=== PATIENT | male | born 1995 | race Caucasian/White ===

== ENCOUNTER 2024-04-08 19:38 | Emergency (ER) | payer SELFPAY ==
[2024-04-08] MEDS: Sodium Chloride 0.9% 1,000 ML IRR PRN (20:47)
[2024-04-08] MEDS: Sodium Chloride 0.9% 250 ML ONE (20:47)
[2024-04-08] MEDS: Fluorescein 1 MG Ophth Strip EYERT ONE (21:20)
[2024-04-08] MEDS: Dexamethasone/Tobramycin 0.1-0.3% Ophth Susp 5 ML Bottle EYERT SCH (22:00)
== END 2024-04-08 22:13 | disposition home or self-care (01) ==
LOC: JD.ED 19:38
DX: S05.01XA Injury of conjunctiva and corneal abrasion without foreign body, right eye, initial encounter (principal); X58.XXXA Exposure to other specified factors, initial encounter
CPT/HCPCS: 99283; A9270-GY; J7030; J7050